=== PATIENT | male | born 1935 | race Caucasian/White ===

== ENCOUNTER → 2017-01-27 09:43 | Outpatient (CLI) | payer MEDICARE, BC ==
[2014-05-26 12:41] VITALS: BMI 22.9
[~2017-01-27 09:43] MED LIST: ALTOPREV40 MG PO; DIABETA5 MG PO; GLUCOPHAGE500 MG PO; IBUPROFEN200 MG PO; INSTA-GLUCOSE31 GM PO; IPRAT-ALBUT 0.5-3 ML UPD; MUCINEX600 MG PO; MULTIPLE VITAMI1 TA1 PO; PRILOSEC20 MG PO; PROVENTIL HFA6.7 GM INH; ROBITUSSIN AC (10 M1 PO; TESSALON PERLE100 MG PO; [UNRECOGNIZED DRUG - OTHER] PO
== END | disposition home or self-care (01) ==
LOC: D.RAD 09:43
DX: J44.9 Chronic obstructive pulmonary disease, unspecified (principal)

== ENCOUNTER → 2018-03-26 13:32 | Outpatient (CLI) | payer MEDICARE, BC ==
[2014-05-26 12:41] VITALS: BMI 22.9
== END | disposition home or self-care (01) ==
LOC: D.RAD 13:32
DX: R05 Cough (principal)